=== PATIENT | male | born 1965 | race African-American/Black ===

== ENCOUNTER 2019-12-06 07:13 | Outpatient (CLI) | payer OTHER ==
[2019-12-06 12:24] LABS: #Eosinphils 0.3 thou/uL (0.0-0.7); #Lymphocytes 2.8 thou/uL (1.20-3.40); #Monocytes 0.9 thou/uL (0.11-0.59); #Neutrophils 7.8 thou/uL (1.40-6.50); %Basophils 0.6 % (0.0-1.0); %Eosinophils 2.3 % (0.0-10.0); %Lymphocytes 23.7 % (21.0-51.0); %Monocytes 7.5 % (0.0-10.0); Mean Corpuscular HGB CONC 34.6 g/dL (32.0-36.0); Mean Corpuscular Hemoglobin 32.6 pg (27.0-31.0); Mean Corpuscular Volume 94.2 fL (78.0-98.0); Mean Platelet Volume 8.2 fL (7.4-10.4); Platelet Count 181 thou/uL (130-400); RBC Distribution Width 11.6 % (11.5-14.5); Red Blood Cell (RBC) Count 3.98 mill/uL (4.70-6.10); White Blood Cell (WBC) Count 11.8 thou/uL (4.8-10.8)
[2019-12-06 12:25] LABS: #Basophils 0.1 thou/uL (0.0-0.2)
[2019-12-06 12:44] LABS: Anion Gap 11 mmol/L (10-20); BUN (Urea Nitrogen) 12 mg/dL (8.4-25.7); Calc. Creatinine Clearance 0 mL/min (70-130); Calcium 8.9 mg/dL (7.8-10.44); Carbon Dioxide 27 mmol/L (22-29); Chloride 105 mmol/L (98-107); Estimated GFR-MDRD Greater than 90; Glucose 68 mg/dL (70-105); Potassium 4.4 mmol/L (3.5-5.1); Sodium 139 mmol/L (136-145)
== END 2019-12-06 07:14 | disposition home or self-care (01) ==
LOC: LABBT 07:13
PROVIDERS: ATTEND Specialist
DX: Z01.818 Encounter for other preprocedural examination (principal); D17.1 Benign lipomatous neoplasm of skin and subcutaneous tissue of trunk
CPT/HCPCS: 80048; 85025; 93005; 93010

== ENCOUNTER 2019-12-11 11:55 | Day surgery (SDC) | payer OTHER ==
--- NOTE | 2019-12-05 10:52 | HP ---
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 He has had this for a number of years, but it has become bothersome. He desires removal. We will plan this as an outpatient under anesthesia. Drain may have to be used. SOCIAL HISTORY: Tobacco, 1/2 pack per day. Alcohol, two beers a day. MEDICATIONS: 1. Gabapentin 300 mg three times a day. 2. Latuda 40 mg at bedtime. 3. Sertraline 50 mg a.m. 4. Lisinopril/hydrochlorothiazide 20/12.5 daily. 5. Aspirin 325 a day. PAST SURGICAL HISTORY: Noncontributory. PAST MEDICAL HISTORY: He has had a prior stroke. He has had an ENT procedure for his vocal cords. 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 Hypertension. He does have a prior history of heart murmur and prior incarceration and followed by [facility] for his depression and psychiatric illness. PHYSICAL EXAMINATION: VITAL SIGNS: 190 pounds, 5 foot 8 inches, 137/108, 68, 99. HEAD, EARS, EYES, NOSE, AND THROAT: Unremarkable. LUNGS: Clear to auscultation. CARDIAC: Regular rate and rhythm. ABDOMEN: Soft and nontender. Large 10 x 10 cm lipoma left upper back. PLAN: Excision of lipoma left upper back under anesthesia outpatient. Risks and benefits were explained. Questions answered. Job ID: [id number]
[2019-12-06 11:30] VITALS: BMI 30.4
[~2019-12-11 11:55] MED LIST: Dexamethasone 20 MG/5 ML VIAL ONE; Glycopyrrolate 0.2 MG/ML 5 ML SYRINGE ONE; Lidocaine 1% PF 5 ML VIAL ONE; Ondansetron PF 4 MG/2 ML Vial ONE; PROPOFOL 200 MG/20 ML VIAL ONE; Rocuronium Bromide 10 MG/ML (10ML VIAL) ONE; Succinylcholine Chloride 20 MG/ML 10 ml SYRINGE FS ONE
--- NOTE | 2019-12-11 13:31 | RAD ---
RADIOGRAPH CHEST 1 VIEW: DATE: 12/11/2019 HISTORY: 53-year-old male with cough. FINDINGS: There are no air space densities, pulmonary edema, pneumothorax, or cardiomegaly. The lateral costop hrenic angles are sharp. IMPRESSION: No acute cardiopulmonary findings. jn [] POS: TPC
--- NOTE | 2019-12-11 14:43 | EKG ---
Test Reason : PREOP Blood Pressure : / mmHG Vent. Rate : 069 BPM Atrial Rate : 069 BPM P-R Int : 158 ms QRS Dur : 088 ms QT Int : 400 ms P-R-T Axes : 060 043 011 degrees QTc Int : 428 ms Normal sinus rhythm Normal ECG When compared with ECG of 06-DEC-2019 11:52, No significant change was found Confirmed by DR. Brook DIALLO ([id number]) on 12/11/2019 2:42:49 PM Referred By: KELLEY Confirmed By:DR. Brook DIALLO
[2019-12-11] MEDS ORDERED: Bacitracin Zinc Ointment 30 gm TUBE ONE (14:45)
[2019-12-11] MEDS ORDERED: Bupivacaine PF 0.5% 30 ML VIAL ONE (14:45)
[2019-12-11] MEDS ORDERED: Lidocaine 1% w/Epinephrine 1:100K 20 ML VIAL ONE (14:45)
[2019-12-11] MEDS ORDERED: Fentanyl 100 MCG/2 ML VIAL ONE (14:56)
--- NOTE | 2019-12-11 16:16 | OP ---
DATE OF PROCEDURE: 12/11/2019 PREOPERATIVE DIAGNOSIS: Large lipoma, left upper back, 8 cm in diameter. POSTOPERATIVE DIAGNOSIS: Large lipoma, left upper back, 8 cm in diameter. PROCEDURES PERFORMED: Excision of lipoma, left upper back, right lateral decubitus position, general anesthesia, 8 cm incision, layered closure, no drain. ANESTHESIA: General, local 0.5% Marcaine 30 mL mixed with 1% Xylocaine with epinephrine 20 mL. DESCRIPTION OF PROCEDURE: The patient was taken to the operating room, where under general anesthesia, properly positioned, padded in the right lateral decubitus position. Left upper back prepared with ChloraPrep and draped in routine fashion. Incision was made through skin, subcutaneous tissue, and a deep lipoma was excised from the deep subcutaneous tissue and overlying fascia excised and submitted to Pathology. Hemostasis was gained with the cautery. Local anesthetic was infiltrated in the wound for postoperative pain control. Subcutaneous tissue was approximated with 3-0 Monocryl, skin with subdermal 4-0 Monocryl, and [place] glue was applied. Job ID: [id number]
[2019-12-11] MEDS ORDERED: Meperidine HCl/PF 25 MG/ML VIAL ONE (16:36)
== END 2019-12-11 18:00 | disposition home or self-care (01) ==
LOC: SDC 11:55
PROVIDERS: ATTEND Specialist
PROC: 0JB70ZZ Excision of Back Subcutaneous Tissue and Fascia, Open Approach (ICD-10-PCS; principal; 2019-12-11)
DX: D17.1 Benign lipomatous neoplasm of skin and subcutaneous tissue of trunk (principal); I10 Essential (primary) hypertension; I63.9 Cerebral infarction, unspecified; R47.1 Dysarthria and anarthria; F17.210 Nicotine dependence, cigarettes, uncomplicated; F32.9 Major depressive disorder, single episode, unspecified; Z79.82 Long term (current) use of aspirin; Z79.899 Other long term (current) drug therapy
CPT/HCPCS: 71045; 88304; 93005; 93010; J0690; J1100; J2001; J2175; J2405; J2704; J3010; J7620; S0020

== ENCOUNTER 2020-04-20 12:11 | Outpatient (CLI) | payer OTHER ==
[~2020-04-20 12:11] MED LIST changes: -Dexamethasone 20 MG/5 ML VIAL ONE; -Glycopyrrolate 0.2 MG/ML 5 ML SYRINGE ONE; -Lidocaine 1% PF 5 ML VIAL ONE; +Magnevist 469MG/ML 20 ML VIAL ONE; -Ondansetron PF 4 MG/2 ML Vial ONE; -PROPOFOL 200 MG/20 ML VIAL ONE; -Rocuronium Bromide 10 MG/ML (10ML VIAL) ONE; -Succinylcholine Chloride 20 MG/ML 10 ml SYRINGE FS ONE
--- NOTE | 2020-04-20 14:25 | MRI ---
Exam: Brain MRI with and without contrast HISTORY: Convulsive patient. Multiple seizures. COMPARISON: 06/30/2017 FINDINGS: Gradient echo sequence: No hemorrhage Calvarium: Appropriate T1 marrow signal intensity Midline brain parenchyma: Unremarkable Cerebrum:No parenchymal mass, mass effect or midline shift. Brain volume, slightly less than expected for patient's age. Cortical lawton-white matter differentiation. T2 and FLAIR white matter hyperintensities, similar to the previous examination are felt to be due to chronic small vessel isch emic change. Ventricles: No evidence of hydrocephalus. Sinuses and mastoid air cells: Adequate aeration Diffusion: Central arterial flow is maintained. Absent restricted diffusion. Postcontrast images: No pathologic enhancement of the brain parenchyma. No definite evidence of mesial temporal sclerosis. IMPRESSION: 1. Limited evaluation due to motion degradation despite repeat imaging. 2. Brain volume, less than expected for patient's age 3. No pathologic enhancement the brain parenchyma. No MR evidence of mesial temporal sclerosis 4. Chronic small vessel ischemic changes of the white matter.
--- NOTE | 2020-04-20 16:11 | EEG ---
DATE OF SERVICE: 04/20/2020 DESCRIPTION OF THE RECORD: Waking background is a 9-10 hertz occipitally dominant alpha frequency. The patient remained awake throughout the study. Photic stimulation was unremarkable. No epileptiform features were seen. IMPRESSION: This is a normal awake EEG. Job ID: [id number]
== END 2020-04-20 12:12 | disposition home or self-care (01) ==
LOC: BICMRI 12:11 → EEG 12:12
PROVIDERS: ATTEND Nurse Practitioner Acute Care
DX: R56.9 Unspecified convulsions (principal); F17.210 Nicotine dependence, cigarettes, uncomplicated
CPT/HCPCS: 70553; 82565; 95816

== ENCOUNTER 2020-05-20 08:41 | Outpatient (CLI) | payer OTHER ==
--- NOTE | 2020-05-20 09:29 | ULT ---
EXAM: US Hepatic Doppler PROVIDED CLINICAL HISTORY: Abnormal AST/ALT COMPARISON: None FINDINGS: The liver, gallbladder, spleen, and limited visualized portions of the pancreas demonstrate a normal sonographic appearance. Majority of the abdominal aorta is obscured by bowel gas. Where visualized, the abdominal aorta does appear normal in caliber. The common duct is normal in caliber measuring 0.5 cm in diameter. Limited visualized portions of the IVC have a normal sonographic appearance. Doppler evaluation with spectral analysis demonstrates normal directional flow within the portal, hep atic, and splenic veins with arterial waveforms seen within the hepatic and splenic arteries. IMPRESSION: 1. Normal appearance of the liver and spleen. 2. No gallbladder calculi are seen, and the common duct is normal in caliber. 3. Evidence of hepatopedal flow.
== END 2020-05-20 08:42 | disposition home or self-care (01) ==
LOC: BICULT 08:41
PROVIDERS: ATTEND Family Medicine
DX: R74.8 Abnormal levels of other serum enzymes (principal)
CPT/HCPCS: 76705

== ENCOUNTER 2022-02-14 05:29 | Day surgery (SDC) | payer OTHER ==
[2022-02-10 12:41] VITALS: BMI 25.8
[2022-02-14] MEDS ORDERED: SUGAMMADEX SODIUM 200 MG/2 ML VIAL ONE (06:36)
[2022-02-14] MEDS ORDERED: fentaNYL Citrate/PF 100 MCG/2 ML SYRINGE ONE (06:36)
[2022-02-14] MEDS ORDERED: Lidocaine 1% w/Epinephrine 1:100K 20 ML VIAL ONE (06:40)
[2022-02-14] MEDS ORDERED: Methylene Blue 50 MG/10 ML AMPUL ONE (06:40)
[2022-02-14] MEDS ORDERED: Bacitracin Zinc Ointment 30 gm TUBE ONE (06:40)
[2022-02-14] MEDS ORDERED: Bupivacaine PF 0.5% 30 ML VIAL ONE (06:40)
[2022-02-14 07:13] LABS: #Basophils 0.1 thou/uL (0.0-0.2); #Eosinphils 0.2 thou/uL (0.0-0.7); #Lymphocytes 2.3 thou/uL (1.20-3.40); #Monocytes 0.5 thou/uL (0.11-0.59); #Neutrophils 4.2 thou/uL (1.40-6.50); %Basophils 0.7 % (0.0-1.0); %Eosinophils 2.9 % (0.0-10.0); %Lymphocytes 31.5 % (21.0-51.0); %Monocytes 7.4 % (0.0-10.0); %Neutrophils 57.6 % (42.0-75.0); Hemoglobin 12.5 g/dL (14.0-18.0); Mean Corpuscular HGB CONC 33.1 g/dL (32.0-36.0); Mean Corpuscular Hemoglobin 30.8 pg (27.0-31.0); Mean Corpuscular Volume 93.2 fL (78.0-98.0); Mean Platelet Volume 7.8 fL (7.4-10.4); Platelet Count 194 thou/uL (130-400); Red Blood Cell (RBC) Count 4.06 mill/uL (4.70-6.10); White Blood Cell (WBC) Count 7.4 thou/uL (4.8-10.8)
[2022-02-14] MEDS ORDERED: cefOXitin 2 GM VIAL ONE (07:20)
[2022-02-14] MEDS ORDERED: Sodium Chloride 0.9% 100 ML ONE (07:20)
[2022-02-14 07:38] LABS: ALT (SGPT) 15 U/L (8-55); AST (SGOT) 21 U/L (5-34); Albumin 4.3 g/dL (3.5-5.0); Alkaline Phosphatase 124 U/L (40-110); Anion Gap 13 mmol/L (10-20); BUN (Urea Nitrogen) 9 mg/dL (8.4-25.7); Bilirubin, Total 0.9 mg/dL (0.2-1.2); Calc. Creatinine Clearance 95 mL/min (70-130); Calcium 9.4 mg/dL (7.8-10.44); Carbon Dioxide 28 mmol/L (22-29); Chloride 107 mmol/L (98-107); Globulin 3.9 g/dL (2.4-3.5); Glucose 85 mg/dL (70-105); Potassium 4.1 mmol/L (3.5-5.1); Protein, Total 8.2 g/dL (6.0-8.3); Sodium 144 mmol/L (136-145)
[2022-02-14] MEDS ORDERED: Lidocaine 1% PF 5 ML VIAL ONE (07:38)
[2022-02-14] MEDS ORDERED: Ondansetron PF 4 MG/2 ML Vial ONE (07:38)
[2022-02-14] MEDS ORDERED: Dexamethasone 20 MG/5 ML VIAL ONE (07:38)
[2022-02-14] MEDS ORDERED: PROPOFOL 200 MG/20 ML VIAL ONE (07:38)
== END 2022-02-14 09:35 | disposition home or self-care (01) ==
LOC: SDC 05:29
PROVIDERS: ATTEND Surgery
PROC: 0D8R3ZZ Division of Anal Sphincter, Percutaneous Approach (ICD-10-PCS; principal; 2022-02-14)
PROC: 06BY3ZC Excision of Hemorrhoidal Plexus, Percutaneous Approach (ICD-10-PCS; principal; 2022-02-14)
DX: K64.2 Third degree hemorrhoids (principal); K60.1 Chronic anal fissure; I10 Essential (primary) hypertension; Z86.73 Personal history of transient ischemic attack (TIA), and cerebral infarction without residual deficits; Z79.82 Long term (current) use of aspirin; Z79.899 Other long term (current) drug therapy
CPT/HCPCS: 36415; 71275; 72193; 80053; 82728; 83540; 83550; 83735; 84484; 85025; 85379; 85610; 86850; 86900; 86901; 88304; 93005; C9113; J0694; J1100; J2250; J2270; J2405; J2704; J3475; J3490; J7050; Q9968; S0020; S0028; U0003; U0005

== ENCOUNTER 2022-02-15 04:41 | Inpatient (IN) | payer OTHER ==
[2022-02-15 06:26] LABS: #Lymphocytes 1.2 thou/uL (1.20-3.40); #Monocytes 1.4 thou/uL (0.11-0.59); #Neutrophils 13.4 thou/uL (1.40-6.50); %Basophils 0.1 % (0.0-1.0); %Eosinophils 0.2 % (0.0-10.0); %Lymphocytes 7.5 % (21.0-51.0); %Monocytes 8.8 % (0.0-10.0); %Neutrophils 83.5 % (42.0-75.0); Hemoglobin 9.7 g/dL (14.0-18.0); Mean Corpuscular HGB CONC 31.7 g/dL (32.0-36.0); Mean Corpuscular Hemoglobin 29.8 pg (27.0-31.0); Mean Corpuscular Volume 93.9 fL (78.0-98.0); Mean Platelet Volume 8.1 fL (7.4-10.4); Platelet Count 199 thou/uL (130-400); RBC Distribution Width 13.1 % (11.5-14.5); Red Blood Cell (RBC) Count 3.24 mill/uL (4.70-6.10); White Blood Cell (WBC) Count 16.1 thou/uL (4.8-10.8)
[2022-02-15 06:39] LABS: INR-International Normal Ratio 1.2; Prothrombin Time 14.9 sec (12.0-14.7)
[2022-02-15 06:48] LABS: Albumin 3.6 g/dL (3.5-5.0); Anion Gap 15 mmol/L (10-20); BUN (Urea Nitrogen) 12 mg/dL (8.4-25.7); Calc. Creatinine Clearance 0 mL/min (70-130); Calcium 8.4 mg/dL (7.8-10.44); Carbon Dioxide 21 mmol/L (22-29); Chloride 106 mmol/L (98-107); Globulin 2.8 g/dL (2.4-3.5); Glucose 134 mg/dL (70-105); Potassium 4.2 mmol/L (3.5-5.1); Protein, Total 6.4 g/dL (6.0-8.3); Sodium 138 mmol/L (136-145)
[2022-02-15 06:49] LABS: ALT (SGPT) 10 U/L (8-55); AST (SGOT) 14 U/L (5-34); Alkaline Phosphatase 96 U/L (40-110)
[2022-02-15] MEDS ORDERED: Iopamidol 370 76% 100 ML VIAL ONE (08:48)
[2022-02-15] MEDS ORDERED: Ondansetron PF 4 MG/2 ML Vial IVP PRN (08:54)
[2022-02-15] MEDS ORDERED: Acetaminophen 650 MG Suppository PR PRN (08:54)
[2022-02-15] MEDS ORDERED: Ondansetron ODT 4 MG TAB PO PRN (08:54)
[2022-02-15 09:29] LABS: Hemoglobin 10.1 g/dL (14.0-18.0)
[2022-02-15 11:01] LABS: Iron 41 ug/dL (65-175); Iron Binding Capacity, Total 254 mcg/dL (261-462); Magnesium 1.9 mg/dL (1.6-2.6)
[2022-02-15] MEDS ORDERED: Magnesium 2 GM/50 ML(in water) 2 GM in Premix Bag 1 BAG IVPB SCH (11:15)
[2022-02-15 12:30] VITALS: BMI 26.2
[2022-02-15] MEDS: Sodium Chloride 0.9% 1,000 ML IV SCH ×3 (12:40→22:08)
[2022-02-15] MEDS: Pantoprazole 40 MG VIAL IVP SCH ×2 (12:40→22:02)
[2022-02-15 13:04] LABS: Hemoglobin 9.8 g/dL (14.0-18.0)
[2022-02-15 19:38] LABS: Hemoglobin 8.3 g/dL (14.0-18.0)
[2022-02-15] MEDS: Metoprolol Tartrate 25 MG TAB PO SCH (21:04)
[2022-02-15 23:09] LABS: SARS-CoV-2 PCR by NAA Not Detected (NotDetected)
[2022-02-16 00:06] LABS: Hemoglobin 7.7 g/dL (14.0-18.0)
[2022-02-16 04:36] LABS: #Basophils 0.1 thou/uL (0.0-0.2); #Eosinphils 0.1 thou/uL (0.0-0.7); #Lymphocytes 2.4 thou/uL (1.20-3.40); #Monocytes 0.8 thou/uL (0.11-0.59); #Neutrophils 6.5 thou/uL (1.40-6.50); %Basophils 0.6 % (0.0-1.0); %Eosinophils 0.7 % (0.0-10.0); %Lymphocytes 24.8 % (21.0-51.0); %Monocytes 8.1 % (0.0-10.0); %Neutrophils 65.9 % (42.0-75.0); Hemoglobin 7.8 g/dL (14.0-18.0); Mean Corpuscular HGB CONC 32.7 g/dL (32.0-36.0); Mean Corpuscular Hemoglobin 30.5 pg (27.0-31.0); Mean Corpuscular Volume 93.5 fL (78.0-98.0); Platelet Count 143 thou/uL (130-400); RBC Distribution Width 12.9 % (11.5-14.5); Red Blood Cell (RBC) Count 2.54 mill/uL (4.70-6.10); White Blood Cell (WBC) Count 9.8 thou/uL (4.8-10.8)
[2022-02-16 04:50] LABS: Anion Gap 12 mmol/L (10-20); BUN (Urea Nitrogen) 9 mg/dL (8.4-25.7); Calc. Creatinine Clearance 115 mL/min (70-130); Carbon Dioxide 23 mmol/L (22-29); Chloride 110 mmol/L (98-107); Glucose 87 mg/dL (70-105); Sodium 141 mmol/L (136-145)
[2022-02-16] MEDS: Sodium Chloride 0.9% 1,000 ML IV SCH ×3 (05:32→21:22)
[2022-02-16] MEDS ORDERED: Iopamidol-370 76% 500 ML 1 ML ONE (09:06)
[2022-02-16] MEDS: Docusate 100 MG CAP PO SCH ×2 (09:58→21:24)
[2022-02-16] MEDS: Pantoprazole 40 MG VIAL IVP SCH ×2 (09:58→21:23)
[2022-02-16] MEDS: Gabapentin 300 MG CAP PO SCH ×2 (09:58→21:24)
[2022-02-16] MEDS: Metoprolol Tartrate 25 MG TAB PO SCH ×2 (09:58→21:24)
[2022-02-16] MEDS ORDERED: cefOXitin 2 GM in Sodium Chloride 0.9% 100 ML IVPB SCH (11:30)
[2022-02-16] MEDS ORDERED: Lidocaine 2% Jelly 5 ML TUBE ONE (13:36)
[2022-02-16] MEDS ORDERED: Lidocaine 1% w/Epinephrine 1:100K 20 ML VIAL ONE (13:36)
[2022-02-16] MEDS ORDERED: Bupivacaine 0.25% 10 ML VIAL ONE (13:36)
[2022-02-16] MEDS ORDERED: Bacitracin Zinc Ointment 30 gm TUBE ONE (13:36)
[2022-02-16] MEDS ORDERED: Famotidine/PF 20 mg/2ml Vial ONE (13:40)
[2022-02-16] MEDS ORDERED: Midazolam HCl 2 mg/2 ml Vial ONE (13:40)
[2022-02-16] MEDS ORDERED: fentaNYL Citrate/PF 100 MCG/2 ML SYRINGE ONE (13:40)
[2022-02-16] MEDS ORDERED: Sodium Chloride 0.9% 100 ML ONE (14:02)
[2022-02-16] MEDS ORDERED: cefOXitin 2 GM VIAL ONE (14:02)
[2022-02-16] MEDS ORDERED: Ondansetron PF 4 MG/2 ML Vial ONE (14:14)
[2022-02-16] MEDS ORDERED: Lidocaine 1% PF 5 ML VIAL ONE (14:14)
[2022-02-16] MEDS ORDERED: PROPOFOL 200 MG/20 ML VIAL ONE (14:14)
[2022-02-16] MEDS ORDERED: Morphine 2 MG/ML VIAL SLOW IVP PRN (14:52)
[2022-02-16] MEDS: Acetaminophen 325 MG TAB PO PRN (16:50)
[2022-02-16] MEDS: Morphine 4 MG/ML VIAL SLOW IVP PRN ×2 (17:45→21:25)
[2022-02-16 19:11] LABS: Hemoglobin 8.3 g/dL (14.0-18.0)
[2022-02-16] MEDS: Atorvastatin Calcium 40 MG TAB PO SCH (21:24)
[2022-02-16] MEDS: Benztropine 1 MG TAB PO SCH (21:24)
[2022-02-17] MEDS: Morphine 4 MG/ML VIAL SLOW IVP PRN (02:35)
[2022-02-17 04:24] LABS: Hemoglobin 7.8 g/dL (14.0-18.0); Mean Corpuscular HGB CONC 33.1 g/dL (32.0-36.0); Mean Corpuscular Hemoglobin 31.1 pg (27.0-31.0); Mean Platelet Volume 8.4 fL (7.4-10.4); Platelet Count 137 thou/uL (130-400); RBC Distribution Width 12.7 % (11.5-14.5); Red Blood Cell (RBC) Count 2.51 mill/uL (4.70-6.10); White Blood Cell (WBC) Count 7.9 thou/uL (4.8-10.8)
[2022-02-17 04:43] LABS: Anion Gap 11 mmol/L (10-20); BUN (Urea Nitrogen) 7 mg/dL (8.4-25.7); Calc. Creatinine Clearance 117 mL/min (70-130); Carbon Dioxide 24 mmol/L (22-29); Chloride 110 mmol/L (98-107); Glucose 78 mg/dL (70-105); Potassium 3.7 mmol/L (3.5-5.1); Sodium 141 mmol/L (136-145)
[2022-02-17] MEDS: Docusate 100 MG CAP PO SCH ×2 (09:56→20:42)
[2022-02-17] MEDS: Gabapentin 300 MG CAP PO SCH ×2 (09:56→20:42)
[2022-02-17] MEDS: Lisinopril 20 MG TAB PO SCH (09:57)
[2022-02-17] MEDS: Pantoprazole 40 MG VIAL IVP SCH ×2 (09:58→20:44)
[2022-02-17] MEDS: Metoprolol Tartrate 25 MG TAB PO SCH ×2 (09:58→20:42)
[2022-02-17] MEDS: Sodium Chloride 0.9% 1,000 ML IV SCH ×2 (13:03→23:46)
[2022-02-17] MEDS: Benztropine 1 MG TAB PO SCH (20:42)
[2022-02-17] MEDS: Atorvastatin Calcium 40 MG TAB PO SCH (20:43)
[2022-02-17] MEDS: Acetaminophen 325 MG TAB PO PRN (20:43)
[2022-02-18 05:31] LABS: Hemoglobin 7.6 g/dL (14.0-18.0); Mean Corpuscular HGB CONC 33.5 g/dL (32.0-36.0); Mean Corpuscular Hemoglobin 31.1 pg (27.0-31.0); Mean Corpuscular Volume 92.6 fL (78.0-98.0); Mean Platelet Volume 8.2 fL (7.4-10.4); Platelet Count 140 thou/uL (130-400); RBC Distribution Width 12.3 % (11.5-14.5); Red Blood Cell (RBC) Count 2.44 mill/uL (4.70-6.10)
[2022-02-18 08:26] VITALS: BP 130/86; TEMP 97.6
[2022-02-18] MEDS: Metoprolol Tartrate 25 MG TAB PO SCH (08:39)
[2022-02-18] MEDS: Gabapentin 300 MG CAP PO SCH (08:39)
[2022-02-18] MEDS: Lisinopril 20 MG TAB PO SCH (08:39)
[2022-02-18] MEDS: Docusate 100 MG CAP PO SCH (08:40)
[2022-02-18] MEDS: Pantoprazole 40 MG VIAL IVP SCH (08:40)
== END 2022-02-18 16:22 | DRG 987 ==
LOC: ERS 04:41 → 2NO 08:54 → T4-A 02-17 13:03
PROVIDERS: ADMIT Internal Medicine; ATTEND Internal Medicine
PROC: 06L Lower Veins, Occlusion (ICD-10-PCS; principal; 2022-02-16)
DX: K91.840 Postprocedural hemorrhage of a digestive system organ or structure following a digestive system procedure (principal); J98.59 Other diseases of mediastinum, not elsewhere classified; J98.11 Atelectasis; D62 Acute posthemorrhagic anemia; I47.1 Supraventricular tachycardia; F14.20 Cocaine dependence, uncomplicated; K64.8 Other hemorrhoids; I69.391 Dysphagia following cerebral infarction; K62.89 Other specified diseases of anus and rectum; G40.909 Epilepsy, unspecified, not intractable, without status epilepticus; I69.320 Aphasia following cerebral infarction; K52.9 Noninfective gastroenteritis and colitis, unspecified; K60.2 Anal fissure, unspecified; I49.8 Other specified cardiac arrhythmias; K21.9 Gastro-esophageal reflux disease without esophagitis; N31.2 Flaccid neuropathic bladder, not elsewhere classified; R91.1 Solitary pulmonary nodule; F10.21 Alcohol dependence, in remission; F41.9 Anxiety disorder, unspecified; F32.A Depression, unspecified; G20 Parkinson's disease; G60.9 Hereditary and idiopathic neuropathy, unspecified; F25.9 Schizoaffective disorder, unspecified; I10 Essential (primary) hypertension; G47.00 Insomnia, unspecified; Y83.8 Other surgical procedures as the cause of abnormal reaction of the patient, or of later complication, without mention of misadventure at the time of the procedure; Z20.822 Contact with and (suspected) exposure to COVID-19; Z79.82 Long term (current) use of aspirin; Z79.891 Long term (current) use of opiate analgesic; Z79.899 Other long term (current) drug therapy; Z86.018 Personal history of other benign neoplasm; Z87.891 Personal history of nicotine dependence; Z83.3 Family history of diabetes mellitus; Z67.11 Type A blood, Rh negative
CPT/HCPCS: 36415; 72193; 80053; 82728; 83540; 83550; 83735; 84484; 85025; 85379; 85610; 86850; 86900; 86901; 93005; C9113; J3475; J7050; U0003; U0005

== ENCOUNTER 2022-03-18 09:45 | Day surgery (SDC) | payer OTHER ==
[2022-03-17 14:24] VITALS: BMI 26.3
[2022-03-18] MEDS ORDERED: fentaNYL Citrate/PF 100 MCG/2 ML SYRINGE ONE (10:37)
[2022-03-18] MEDS ORDERED: SUGAMMADEX SODIUM 200 MG/2 ML VIAL ONE (12:15)
[2022-03-18] MEDS ORDERED: Lidocaine 1% w/Epinephrine 1:100K 20 ML VIAL ONE (12:37)
[2022-03-18] MEDS ORDERED: Lidocaine 2% Jelly 5 ML TUBE ONE (12:37)
[2022-03-18] MEDS ORDERED: Dexamethasone 20 MG/5 ML VIAL ONE (12:41)
[2022-03-18] MEDS ORDERED: Glycopyrrolate 0.2 MG/ML 5 ML SYRINGE ONE (12:41)
[2022-03-18] MEDS ORDERED: PROPOFOL 200 MG/20 ML VIAL ONE (12:41)
[2022-03-18] MEDS ORDERED: Ondansetron PF 4 MG/2 ML Vial ONE (12:41)
[2022-03-18] MEDS ORDERED: Lidocaine 1% PF 5 ML VIAL ONE (12:41)
[2022-03-18] MEDS ORDERED: Rocuronium Bromide 10 MG/ML (10ML VIAL) ONE (12:41)
[2022-03-18] MEDS ORDERED: EPINEPHrine 1 MG/ML AMP ONE (13:05)
== END 2022-03-18 15:52 | disposition home or self-care (01) ==
LOC: SDC 09:45
PROVIDERS: ATTEND Internal Medicine Critical Care Medicine
PROC: 0BB88ZX Excision of Left Upper Lobe Bronchus, Via Natural or Artificial Opening Endoscopic, Diagnostic (ICD-10-PCS; principal; 2022-03-18)
PROC: 0BDG8ZX Extraction of Left Upper Lung Lobe, Via Natural or Artificial Opening Endoscopic, Diagnostic (ICD-10-PCS; principal; 2022-03-18)
DX: C34.12 Malignant neoplasm of upper lobe, left bronchus or lung (principal); Z79.82 Long term (current) use of aspirin; Z79.899 Other long term (current) drug therapy
CPT/HCPCS: 88112; 88305; 88341; 88342; J0171; J1100; J2405; J2704

== ENCOUNTER 2022-03-24 11:21 | Emergency (ER) | payer OTHER ==
[2022-03-24 12:16] LABS: #Eosinphils 0.1 thou/uL (0.0-0.7); #Lymphocytes 1.5 thou/uL (1.20-3.40); #Monocytes 0.6 thou/uL (0.11-0.59); #Neutrophils 4.3 thou/uL (1.40-6.50); %Basophils 0.4 % (0.0-1.0); %Eosinophils 1.3 % (0.0-10.0); %Lymphocytes 22.6 % (21.0-51.0); %Monocytes 9.4 % (0.0-10.0); %Neutrophils 66.2 % (42.0-75.0); Hemoglobin 8.1 g/dL (14.0-18.0); Mean Corpuscular HGB CONC 31.6 g/dL (32.0-36.0); Mean Corpuscular Hemoglobin 28.1 pg (27.0-31.0); Mean Platelet Volume 7.9 fL (7.4-10.4); Platelet Count 194 thou/uL (130-400); RBC Distribution Width 13.9 % (11.5-14.5); Red Blood Cell (RBC) Count 2.89 mill/uL (4.70-6.10); White Blood Cell (WBC) Count 6.5 thou/uL (4.8-10.8)
[2022-03-24 12:38] LABS: ALT (SGPT) 7 U/L (8-55); AST (SGOT) 14 U/L (5-34); Albumin 3.6 g/dL (3.5-5.0); Alkaline Phosphatase 90 U/L (40-110); Anion Gap 12 mmol/L (10-20); BUN (Urea Nitrogen) 9 mg/dL (8.4-25.7); Bilirubin, Total 0.5 mg/dL (0.2-1.2); Calc. Creatinine Clearance 0 mL/min (70-130); Calcium 8.5 mg/dL (7.8-10.44); Carbon Dioxide 26 mmol/L (22-29); Chloride 109 mmol/L (98-107); Globulin 3.3 g/dL (2.4-3.5); Glucose 83 mg/dL (70-105); Potassium 4.5 mmol/L (3.5-5.1); Protein, Total 6.9 g/dL (6.0-8.3); Sodium 142 mmol/L (136-145)
== END 2022-03-24 13:04 | disposition home or self-care (01) ==
LOC: ERS 11:21
DX: R56.9 Unspecified convulsions (principal); I95.1 Orthostatic hypotension; R00.1 Bradycardia, unspecified; I10 Essential (primary) hypertension; G60.9 Hereditary and idiopathic neuropathy, unspecified; G20 Parkinson's disease; G47.00 Insomnia, unspecified; F17.210 Nicotine dependence, cigarettes, uncomplicated; Z86.73 Personal history of transient ischemic attack (TIA), and cerebral infarction without residual deficits; Z79.899 Other long term (current) drug therapy
CPT/HCPCS: 36415; 70450; 71045; 80053; 83735; 84484; 85025; 93005; 94760; 96360; 96361

== ENCOUNTER 2022-04-19 08:00 | Outpatient (CLI) | payer OTHER | END 2022-04-19 08:01 | disposition home or self-care (01) | LOC: PET 08:00 | PROVIDERS: ATTEND Internal Medicine Hematology & Oncology | DX: C34.12 Malignant neoplasm of upper lobe, left bronchus or lung (principal); R91.8 Other nonspecific abnormal finding of lung field | CPT/HCPCS: 78815; A9552 ==

== ENCOUNTER 2022-09-15 08:38 | Day surgery (SDC) | payer OTHER ==
[2022-09-14 12:45] VITALS: BMI 26.9
[2022-09-15] MEDS ORDERED: Dexmedetomidine 200 MCG/2 ML VIAL ONE (10:11)
[2022-09-15] MEDS ORDERED: fentaNYL PF 100 MCG/2 ML SYRINGE ONE (10:11)
[2022-09-15] MEDS ORDERED: PROPOFOL 20 ML ONE (10:11)
[2022-09-15 10:21] LABS: #Basophils 0.1 thou/uL (0.0-0.2); #Eosinphils 0.2 thou/uL (0.0-0.7); #Monocytes 0.6 thou/uL (0.11-0.59); #Neutrophils 3.5 thou/uL (1.40-6.50); %Lymphocytes 30.9 % (21.0-51.0); %Monocytes 9.2 % (0.0-10.0); %Neutrophils 55.8 % (42.0-75.0); Hemoglobin 9.9 g/dL (14.0-18.0); Mean Corpuscular HGB CONC 30.4 g/dL (32.0-36.0); Mean Corpuscular Hemoglobin 24.9 pg (27.0-31.0); Mean Corpuscular Volume 81.8 fl (78.0-98.0); Platelet Count 236 10x3/uL (130-400); RBC Distribution Width 16.9 % (11.5-14.5); Red Blood Cell (RBC) Count 3.96 mill/uL (4.70-6.10); White Blood Cell (WBC) Count 6.3 10x3/uL (4.8-10.8)
[2022-09-15 10:29] LABS: Anion Gap 9 mmol/L (10-20); BUN (Urea Nitrogen) 9 mg/dL (8.4-25.7); Calc. Creatinine Clearance 104 mL/min (70-130); Calcium 9.2 mg/dL (7.8-10.44); Carbon Dioxide 28 mmol/L (22-29); Chloride 106 mmol/L (98-107); Estimated GFR 100; Glucose 76 mg/dL (70-105); Potassium 4.2 mmol/L (3.5-5.1); Sodium 139 mmol/L (136-145)
[2022-09-15] MEDS ORDERED: Lidocaine 2% PF 5 ML VIAL ONE (11:30)
[2022-09-15] MEDS ORDERED: Bupivacaine/Epinephrine 0.25% 30 ML VIAL ONE (11:30)
[2022-09-15] MEDS ORDERED: CEFAZOLIN 2 GM VIAL ONE (11:37)
[2022-09-15] MEDS ORDERED: Sodium Chloride 0.9% 100 ML ONE (11:37)
== END 2022-09-15 14:12 | disposition home or self-care (01) ==
LOC: SDC 08:38
PROVIDERS: ATTEND Surgery
PROC: 02HV33Z Insertion of Infusion Device into Superior Vena Cava, Percutaneous Approach (ICD-10-PCS; principal; 2022-09-15)
PROC: 0JH60WZ Insertion of Totally Implantable Vascular Access Device into Chest Subcutaneous Tissue and Fascia, Open Approach (ICD-10-PCS; principal; 2022-09-15)
DX: C34.90 Malignant neoplasm of unspecified part of unspecified bronchus or lung (principal); I25.10 Atherosclerotic heart disease of native coronary artery without angina pectoris; I10 Essential (primary) hypertension; Z79.82 Long term (current) use of aspirin; Z79.899 Other long term (current) drug therapy
CPT/HCPCS: 71045; 80048; 85025; C1788; J1642; J2001; J2704; J3490

== ENCOUNTER 2022-10-13 06:34 | Outpatient (CLI) | payer OTHER ==
[2022-10-13] MEDS ORDERED: Iopamidol 370 76% 100 ML VIAL ONE (11:33)
== END 2022-10-13 06:35 | disposition home or self-care (01) ==
LOC: CT 06:34
PROVIDERS: ATTEND Internal Medicine Hematology & Oncology
DX: C34.12 Malignant neoplasm of upper lobe, left bronchus or lung (principal); D50.8 Other iron deficiency anemias; J98.11 Atelectasis
CPT/HCPCS: 71260; Q9967

== ENCOUNTER 2023-05-31 18:46 | Emergency (ER) | payer OTHER ==
[2023-05-31 21:14] LABS: Bacteria/HPF None Seen HPF (None Seen); Bilirubin Negative (Negative); Blood, Urine Negative (Negative); CAUTI Indications for Culture Dysuria,urgency,freq; Clarity Clear (Clear); Glucose, Urine (Dipstick) Normal (Negative); Ketone, Urine Negative (Negative); Leukocyte 75 Leu/uL (Negative); Nitrite Negative (Negative); Protein, Urine (Dipstick) 30 mg/dL (Neg-Trace); RBC/HPF 0-3 HPF (0-3); Specific Gravity, Urine 1.012 (1.002-1.036); Urobilinogen Normal mg/dL (Less than 2)
[2023-05-31 21:15] LABS: Urine Culture Reflex No No
[2023-05-31 21:54] LABS: #Eosinphils 0.3 thou/uL (0.0-0.7); #Monocytes 0.7 thou/uL (0.11-0.59); #Neutrophils 8.1 thou/uL (1.40-6.50); %Basophils 0.4 % (0.0-1.0); %Eosinophils 2.4 % (0.0-10.0); %Lymphocytes 13.1 % (21.0-51.0); %Monocytes 6.7 % (0.0-10.0); %Neutrophils 77.1 % (42.0-75.0); Hematocrit 31.6 % (42.0-52.0); Hemoglobin 10.7 g/dL (14.0-18.0); Mean Corpuscular HGB CONC 33.9 g/dL (32.0-36.0); Mean Corpuscular Hemoglobin 28.7 pg (27.0-31.0); Mean Corpuscular Volume 84.7 fl (78.0-98.0); Mean Platelet Volume 10.3 fL (7.4-10.4); Platelet Count 220 10x3/uL (130-400); RBC Distribution Width 13.1 % (11.5-14.5); Red Blood Cell (RBC) Count 3.73 mill/uL (4.70-6.10); White Blood Cell (WBC) Count 10.5 10x3/uL (4.8-10.8)
[2023-05-31 22:19] LABS: Troponin I Less than 0.010 ng/mL (< 0.028)
[2023-05-31 22:23] LABS: ALT (SGPT) 8 U/L (8-55); Albumin 3.6 g/dL (3.5-5.0); Alkaline Phosphatase 110 U/L (40-110); Anion Gap 11 mmol/L (10-20); BUN (Urea Nitrogen) 8 mg/dL (8.4-25.7); Bilirubin, Total 0.4 mg/dL (0.2-1.2); CK (CPK) 184 U/L (30-200); Calc. Creatinine Clearance 0 mL/min (70-130); Calcium 8.8 mg/dL (7.8-10.44); Carbon Dioxide 26 mmol/L (22-29); Chloride 102 mmol/L (98-107); Estimated GFR 100; Globulin 4.2 g/dL (2.4-3.5); Glucose 102 mg/dL (70-105); Potassium 3.4 mmol/L (3.5-5.1); Protein, Total 7.8 g/dL (6.0-8.3); Sodium 136 mmol/L (136-145)
[2023-05-31 22:26] LABS: AST (SGOT) 16 U/L (5-34)
[2023-05-31] MEDS ORDERED: NS 0.9% w/ 20 MEQ KCL 0 ML ONE (22:39)
[2023-05-31] MEDS ORDERED: Potassium Chloride 20 MEQ/100 ML PREMIX BAG ONE (22:41)
== END 2023-06-01 00:51 ==
LOC: ERS 18:46
DX: R56.9 Unspecified convulsions (principal); E87.6 Hypokalemia; I10 Essential (primary) hypertension; Z79.899 Other long term (current) drug therapy; Z79.82 Long term (current) use of aspirin; F17.210 Nicotine dependence, cigarettes, uncomplicated
CPT/HCPCS: 51701; 70450; 71045; 80053; 81001; 82248; 82550; 83605; 83615; 84100; 84439; 84443; 84484; 84550; 85025; 93005; J3480

== ENCOUNTER 2023-06-14 10:37 | Outpatient (CLI) | payer OTHER | END 2023-06-14 10:38 | disposition home or self-care (01) | LOC: BICCT 10:37 | PROVIDERS: ATTEND Internal Medicine Hematology & Oncology | DX: C34.12 Malignant neoplasm of upper lobe, left bronchus or lung (principal) | CPT/HCPCS: 71260 ==

== ENCOUNTER 2023-09-20 09:25 | Outpatient (CLI) | payer OTHER ==
[2023-09-20] MEDS ORDERED: Iopamidol 370 76% 100 ML VIAL ONE (10:12)
== END 2023-09-20 09:26 | disposition home or self-care (01) ==
LOC: BICCT 09:25
PROVIDERS: ATTEND Internal Medicine Hematology & Oncology
DX: C34.12 Malignant neoplasm of upper lobe, left bronchus or lung (principal); J98.4 Other disorders of lung; R59.0 Localized enlarged lymph nodes; R91.8 Other nonspecific abnormal finding of lung field
CPT/HCPCS: 71260; Q9967

== ENCOUNTER 2024-01-10 09:17 | Outpatient (CLI) | payer OTHER | END 2024-01-10 09:18 | disposition home or self-care (01) | LOC: BICCT 09:17 | PROVIDERS: ATTEND Internal Medicine Hematology & Oncology | DX: C34.90 Malignant neoplasm of unspecified part of unspecified bronchus or lung (principal); J98.11 Atelectasis; R59.0 Localized enlarged lymph nodes | CPT/HCPCS: 71260; 82565 ==

== ENCOUNTER 2024-02-15 15:28 | Inpatient (IN) | payer OTHER ==
[2024-02-15 17:28] LABS: #Basophils 0.06 10x3/uL (0.0-0.2); %Basophils 0.4 % (0.0-1.0); %Eosinophils 4.1 % (0.0-10.0); %Lymphocytes 13.3 % (21.0-51.0); %Monocytes 8.9 % (0.0-10.0); %Neutrophils 72.9 % (42.0-75.0); Hemoglobin 11.3 g/dL (14.0-18.0); Mean Corpuscular HGB CONC 33.2 g/dL (32.0-36.0); Mean Corpuscular Hemoglobin 27.8 pg (27.0-31.0); Mean Corpuscular Volume 83.5 fL (78.0-98.0); Mean Platelet Volume 10.9 fL (7.4-10.4); Platelet Count 261 10x3/uL (130-400); RBC Distribution Width 14.5 % (11.5-14.5); Red Blood Cell (RBC) Count 4.07 mill/uL (4.70-6.10)
[2024-02-15 17:49] LABS: Globulin 4.8 g/dL (2.4-3.5)
[2024-02-15 17:52] LABS: Troponin I Less than 0.010 ng/mL (< 0.028)
[2024-02-15 17:54] LABS: ALT (SGPT) 16 U/L (8-55); AST (SGOT) 24 U/L (5-34); Albumin 3.1 g/dL (3.5-5.0); Alkaline Phosphatase 105 U/L (40-110); Anion Gap 18 mmol/L (10-20); BUN (Urea Nitrogen) 12 mg/dL (8.4-25.7); Bilirubin, Total 0.4 mg/dL (0.2-1.2); Calc. Creatinine Clearance 0 mL/min (70-130); Calcium 8.9 mg/dL (7.8-10.44); Carbon Dioxide 21 mmol/L (22-29); Chloride 104 mmol/L (98-107); Estimated GFR 103; Glucose 106 mg/dL (70-105); Lipase 27 U/L (8-78); Potassium 3.9 mmol/L (3.5-5.1); Protein, Total 7.9 g/dL (6.0-8.3); Sodium 139 mmol/L (136-145)
[2024-02-15 19:17] LABS: Bilirubin Negative (Negative); Blood, Urine 2+ (Negative); CAUTI Indications for Culture Dysuria,urgency,freq; Clarity Clear (Clear); Glucose, Urine (Dipstick) Normal (Negative); Ketone, Urine Negative (Negative); Leukocyte 500 Leu/uL (Negative); Nitrite Negative (Negative); Protein, Urine (Dipstick) Negative (Neg-Trace); RBC/HPF 21-50 HPF (0-3); Specific Gravity, Urine 1.026 (1.002-1.036); Squamous Epithelial 0-3 HPF (0-3); WBC/HPF Greater than 50 HPF (0-3)
[2024-02-15 19:20] LABS: Bacteria/HPF 1+ HPF (None Seen)
[2024-02-15 19:21] LABS: Urine Culture Reflex Yes Yes
[2024-02-15] MEDS ORDERED: Cefepime 2 GM VIAL ONE (20:20)
[2024-02-15] MEDS ORDERED: Sodium Chloride 0.9% 100 ML ONE (20:20)
[2024-02-15] MEDS ORDERED: Ondansetron PF 4 MG/2 ML Vial IVP PRN ×2 (20:45→23:39)
[2024-02-15] MEDS ORDERED: Acetaminophen 325 MG TAB PO PRN (20:45)
[2024-02-15] MEDS ORDERED: Ondansetron ODT 4 MG TAB SL PRN (20:45)
[2024-02-15] MEDS ORDERED: Vancomycin (BATCH) 2 GM/500 ML BAG ONE (21:22)
[2024-02-15 23:13] VITALS: BMI 27.0
[2024-02-15] MEDS ORDERED: Ondansetron ODT 4 MG TAB PO PRN (23:39)
[2024-02-15] MEDS ORDERED: Acetaminophen 650 MG Suppository PR PRN (23:39)
[2024-02-16 04:32] LABS: #Basophils 0.05 10x3/uL (0.0-0.2); %Basophils 0.4 % (0.0-1.0); %Eosinophils 3.6 % (0.0-10.0); %Monocytes 8.4 % (0.0-10.0); %Neutrophils 73.3 % (42.0-75.0); Hematocrit 29.4 % (42.0-52.0); Hemoglobin 9.8 g/dL (14.0-18.0); Mean Corpuscular HGB CONC 33.3 g/dL (32.0-36.0); Mean Corpuscular Hemoglobin 28.5 pg (27.0-31.0); Mean Corpuscular Volume 85.5 fL (78.0-98.0); Mean Platelet Volume 10.2 fL (7.4-10.4); Platelet Count 213 10x3/uL (130-400); RBC Distribution Width 14.3 % (11.5-14.5); Red Blood Cell (RBC) Count 3.44 mill/uL (4.70-6.10)
[2024-02-16 05:01] LABS: Chloride 106 mmol/L (98-107); Potassium 3.6 mmol/L (3.5-5.1); Sodium 138 mmol/L (136-145)
[2024-02-16 05:13] LABS: Anion Gap 13 mmol/L (10-20); BUN (Urea Nitrogen) 9 mg/dL (8.4-25.7); Calc. Creatinine Clearance 126 mL/min (70-130); Calcium 8.7 mg/dL (7.8-10.44); Carbon Dioxide 23 mmol/L (22-29); Estimated GFR 106; Glucose 94 mg/dL (70-105)
[2024-02-16] MEDS: Cefepime 1 GM in Sodium Chloride 0.9% 100 ML IVPB SCH (08:26)
[2024-02-16] MEDS: Famotidine/PF 20 mg/2ml Vial SLOW IVP SCH (08:26)
[2024-02-16] MEDS: Famotidine 20 MG TAB PO SCH (08:26)
[2024-02-16] MEDS: Aspirin 81 mg Enteric Coated Tablet PO SCH (09:53)
[2024-02-16] MEDS: Pantoprazole DR 40 MG TAB PO SCH (09:53)
[2024-02-16] MEDS: NS 0.9% w/ 20 MEQ KCL 1,000 ML/1,000 ML BAG IV SCH (19:34)
[2024-02-16] MEDS: Cefepime 2 GM in Sodium Chloride 0.9% 100 ML IVPB SCH (20:20)
[2024-02-17 04:40] LABS: #Basophils 0.06 10x3/uL (0.0-0.2); %Basophils 0.6 % (0.0-1.0); %Eosinophils 4.8 % (0.0-10.0); %Lymphocytes 18.1 % (21.0-51.0); %Neutrophils 67.1 % (42.0-75.0); Hematocrit 29.5 % (42.0-52.0); Hemoglobin 9.7 g/dL (14.0-18.0); Mean Corpuscular HGB CONC 32.9 g/dL (32.0-36.0); Mean Corpuscular Hemoglobin 27.5 pg (27.0-31.0); Mean Corpuscular Volume 83.6 fL (78.0-98.0); Mean Platelet Volume 10.3 fL (7.4-10.4); Platelet Count 226 10x3/uL (130-400); RBC Distribution Width 14.2 % (11.5-14.5); Red Blood Cell (RBC) Count 3.53 mill/uL (4.70-6.10)
[2024-02-17 05:10] LABS: Anion Gap 13 mmol/L (10-20); BUN (Urea Nitrogen) 7 mg/dL (8.4-25.7); Calc. Creatinine Clearance 126 mL/min (70-130); Calcium 8.9 mg/dL (7.8-10.44); Carbon Dioxide 23 mmol/L (22-29); Chloride 108 mmol/L (98-107); Estimated GFR 106; Glucose 92 mg/dL (70-105); Magnesium 1.8 mg/dL (1.6-2.6); Potassium 3.8 mmol/L (3.5-5.1); Sodium 140 mmol/L (136-145)
[2024-02-17] MEDS: Magnesium 2 GM/50 ML(in water) 2 GM in Premix 1 BAG IVPB SCH (09:46)
[2024-02-17] MEDS: Gabapentin 300 MG CAP PO SCH (20:38)
[2024-02-17] MEDS: Atorvastatin Calcium 40 MG TAB PO SCH (20:39)
[2024-02-17] MEDS: Metoprolol Tartrate 25 MG TAB PO SCH (20:39)
[2024-02-17] MEDS: Heparin 5,000 UNITS/ML VIAL SC SCH (20:39)
[2024-02-17] MEDS: Docusate 100 MG CAP PO SCH (20:39)
[2024-02-17] MEDS ORDERED: Benztropine 1 MG TAB PO SCH (21:00)
[2024-02-18] MEDS: Sertraline 25 MG TAB PO SCH (08:09)
[2024-02-18] MEDS: Aspirin 325 mg Enteric Coated Tablet PO SCH (08:10)
[2024-02-18] MEDS: Acetaminophen 325 MG TAB PO PRN (20:53)
[2024-02-20 08:20] LABS: Anion Gap 13 mmol/L (10-20); BUN (Urea Nitrogen) 10 mg/dL (8.4-25.7); Calc. Creatinine Clearance 126 mL/min (70-130); Calcium 9.4 mg/dL (7.8-10.44); Carbon Dioxide 24 mmol/L (22-29); Chloride 104 mmol/L (98-107); Estimated GFR 106; Glucose 78 mg/dL (70-105); Potassium 3.9 mmol/L (3.5-5.1); Sodium 137 mmol/L (136-145)
[2024-02-20 08:45] LABS: #Basophils 0.06 10x3/uL (0.0-0.2); %Basophils 0.5 % (0.0-1.0); %Eosinophils 6.1 % (0.0-10.0); %Lymphocytes 18.8 % (21.0-51.0); %Monocytes 10.7 % (0.0-10.0); %Neutrophils 63.2 % (42.0-75.0); Hematocrit 32.1 % (42.0-52.0); Hemoglobin 10.5 g/dL (14.0-18.0); Mean Corpuscular HGB CONC 32.7 g/dL (32.0-36.0); Mean Corpuscular Hemoglobin 28.2 pg (27.0-31.0); Mean Corpuscular Volume 86.1 fL (78.0-98.0); Mean Platelet Volume 10.5 fL (7.4-10.4); Platelet Count 316 10x3/uL (130-400); Red Blood Cell (RBC) Count 3.73 mill/uL (4.70-6.10)
[2024-02-20] MEDS ORDERED: GenTeal Tears Severe Dry Eye GEL 10 GM R EYE PRN ×2 (08:59→09:02)
[2024-02-20] MEDS ORDERED: Lisinopril 20 MG TAB PO SCH (09:00)
[2024-02-20] MEDS ORDERED: Polyvinyl Alcohol 1.4%/Povidone 0.6% Opth Drops EA EYE SCH (09:00)
[2024-02-20] MEDS: Lisinopril 10 MG TAB PO SCH (11:00)
[2024-02-20] MEDS: cefTRIAXone\\ROCEPHIN 2 GM in Sodium Chloride 0.9% 100 ML IVPB SCH (14:57)
[2024-02-20] MEDS: Lurasidone 20 MG TABLET PO SCH (22:11)
[2024-02-20] MEDS: Doxycycline 100 MG CAP PO SCH (22:11)
[2024-02-21 05:22] LABS: #Basophils 0.06 10x3/uL (0.0-0.2); %Basophils 0.5 % (0.0-1.0); %Eosinophils 4.7 % (0.0-10.0); %Monocytes 9.7 % (0.0-10.0); %Neutrophils 67.6 % (42.0-75.0); Hematocrit 31.7 % (42.0-52.0); Hemoglobin 10.5 g/dL (14.0-18.0); Mean Corpuscular HGB CONC 33.1 g/dL (32.0-36.0); Mean Corpuscular Hemoglobin 28.5 pg (27.0-31.0); Mean Corpuscular Volume 85.9 fL (78.0-98.0); Platelet Count 315 10x3/uL (130-400); RBC Distribution Width 14.2 % (11.5-14.5); Red Blood Cell (RBC) Count 3.69 mill/uL (4.70-6.10)
[2024-02-21 06:13] LABS: Anion Gap 16 mmol/L (10-20); BUN (Urea Nitrogen) 10 mg/dL (8.4-25.7); Calc. Creatinine Clearance 129 mL/min (70-130); Calcium 9.5 mg/dL (7.8-10.44); Carbon Dioxide 22 mmol/L (22-29); Chloride 103 mmol/L (98-107); Estimated GFR 107; Glucose 86 mg/dL (70-105); Potassium 3.8 mmol/L (3.5-5.1); Sodium 137 mmol/L (136-145)
[2024-02-21 07:51] LABS: Legionella Urinary Ag Negative (Negative)
[2024-02-21 07:52] LABS: Strep pneumo Urine Ag NEGATIVE (NEGATIVE)
[2024-02-21] MEDS: Polyvinyl Alcohol 1.4%/Povidone 0.6% Opth Drops EA EYE SCH (13:53)
[2024-02-21] MEDS: Ipratropium/Albuterol 3 ML NEB NEB PRN (20:27)
[2024-02-22 10:14] LABS: #Basophils 0.07 10x3/uL (0.0-0.2); %Basophils 0.4 % (0.0-1.0); %Eosinophils 1.8 % (0.0-10.0); %Lymphocytes 13.7 % (21.0-51.0); %Monocytes 8.8 % (0.0-10.0); %Neutrophils 74.5 % (42.0-75.0); Hematocrit 33.4 % (42.0-52.0); Mean Corpuscular HGB CONC 32.9 g/dL (32.0-36.0); Mean Corpuscular Hemoglobin 27.8 pg (27.0-31.0); Mean Corpuscular Volume 84.6 fL (78.0-98.0); Mean Platelet Volume 9.6 fL (7.4-10.4); Platelet Count 350 10x3/uL (130-400); RBC Distribution Width 14.3 % (11.5-14.5); Red Blood Cell (RBC) Count 3.95 mill/uL (4.70-6.10)
[2024-02-22 11:18] LABS: Chloride 104 mmol/L (98-107); Potassium 3.8 mmol/L (3.5-5.1); Sodium 141 mmol/L (136-145)
[2024-02-22 11:19] LABS: Calcium 9.8 mg/dL (7.8-10.44); Glucose 122 mg/dL (70-105)
[2024-02-22 11:21] LABS: Anion Gap 17 mmol/L (10-20); Carbon Dioxide 24 mmol/L (22-29)
[2024-02-22 11:23] LABS: BUN (Urea Nitrogen) 17 mg/dL (8.4-25.7); Calc. Creatinine Clearance 117 mL/min (70-130); Estimated GFR 104
[2024-02-22 15:13] VITALS: BMI 27.0
[2024-02-22] MEDS: Cefepime 2 GM in Sodium Chloride 0.9% 100 ML IVPB SCH (17:42)
[2024-02-23 05:23] LABS: #Basophils 0.08 10x3/uL (0.0-0.2); %Basophils 0.5 % (0.0-1.0); %Eosinophils 2.2 % (0.0-10.0); %Lymphocytes 13.3 % (21.0-51.0); %Monocytes 10.7 % (0.0-10.0); %Neutrophils 72.2 % (42.0-75.0); Hematocrit 32.1 % (42.0-52.0); Hemoglobin 10.2 g/dL (14.0-18.0); Mean Corpuscular HGB CONC 31.8 g/dL (32.0-36.0); Mean Corpuscular Hemoglobin 26.9 pg (27.0-31.0); Mean Corpuscular Volume 84.7 fL (78.0-98.0); Mean Platelet Volume 9.6 fL (7.4-10.4); Platelet Count 332 10x3/uL (130-400); RBC Distribution Width 14.6 % (11.5-14.5); Red Blood Cell (RBC) Count 3.79 mill/uL (4.70-6.10)
[2024-02-23 05:39] LABS: Anion Gap 13 mmol/L (10-20); BUN (Urea Nitrogen) 14 mg/dL (8.4-25.7); Calc. Creatinine Clearance 117 mL/min (70-130); Calcium 9.5 mg/dL (7.8-10.44); Carbon Dioxide 25 mmol/L (22-29); Chloride 106 mmol/L (98-107); Estimated GFR 104; Glucose 96 mg/dL (70-105); Potassium 4.3 mmol/L (3.5-5.1); Sodium 140 mmol/L (136-145)
[2024-02-23] MEDS ORDERED: Iopamidol 370 76% 100 ML VIAL ONE (12:05)
[2024-02-23] MEDS: Famotidine 20 MG TAB PO SCH (22:17)
[2024-02-24] MEDS ORDERED: Benzonatate 100 MG CAP PO PRN (02:54)
[2024-02-24] MEDS: Scopolamine 1 mg/72 hour Patch TD SCH (03:45)
[2024-02-24 04:03] LABS: #Basophils 0.08 10x3/uL (0.0-0.2); %Basophils 0.5 % (0.0-1.0); %Lymphocytes 15.5 % (21.0-51.0); %Monocytes 9.5 % (0.0-10.0); %Neutrophils 70.5 % (42.0-75.0); Hematocrit 30.8 % (42.0-52.0); Hemoglobin 9.9 g/dL (14.0-18.0); Mean Corpuscular HGB CONC 32.1 g/dL (32.0-36.0); Mean Corpuscular Hemoglobin 27.3 pg (27.0-31.0); Mean Corpuscular Volume 84.8 fL (78.0-98.0); Mean Platelet Volume 9.6 fL (7.4-10.4); Platelet Count 335 10x3/uL (130-400); RBC Distribution Width 14.5 % (11.5-14.5); Red Blood Cell (RBC) Count 3.63 mill/uL (4.70-6.10)
[2024-02-24 04:30] LABS: Magnesium 1.9 mg/dL (1.6-2.6)
[2024-02-24 04:30] LABS: Anion Gap 14 mmol/L (10-20); BUN (Urea Nitrogen) 17 mg/dL (8.4-25.7); Calc. Creatinine Clearance 139 mL/min (70-130); Calcium 9.8 mg/dL (7.8-10.44); Carbon Dioxide 24 mmol/L (22-29); Chloride 105 mmol/L (98-107); Estimated GFR 110; Glucose 98 mg/dL (70-105); Potassium 4.1 mmol/L (3.5-5.1); Sodium 139 mmol/L (136-145)
[2024-02-25 04:19] LABS: #Basophils 0.07 10x3/uL (0.0-0.2); %Basophils 0.6 % (0.0-1.0); %Eosinophils 4.7 % (0.0-10.0); %Lymphocytes 21.2 % (21.0-51.0); %Monocytes 8.9 % (0.0-10.0); %Neutrophils 63.9 % (42.0-75.0); Hematocrit 28.9 % (42.0-52.0); Hemoglobin 9.4 g/dL (14.0-18.0); Mean Corpuscular HGB CONC 32.5 g/dL (32.0-36.0); Mean Corpuscular Hemoglobin 28.3 pg (27.0-31.0); Mean Platelet Volume 9.6 fL (7.4-10.4); Platelet Count 300 10x3/uL (130-400); RBC Distribution Width 14.6 % (11.5-14.5); Red Blood Cell (RBC) Count 3.32 mill/uL (4.70-6.10)
[2024-02-25 04:32] LABS: Anion Gap 13 mmol/L (10-20); BUN (Urea Nitrogen) 13 mg/dL (8.4-25.7); Calc. Creatinine Clearance 128 mL/min (70-130); Carbon Dioxide 25 mmol/L (22-29); Chloride 105 mmol/L (98-107); Potassium 4.1 mmol/L (3.5-5.1); Sodium 139 mmol/L (136-145)
[2024-02-25 04:33] LABS: Calcium 9.7 mg/dL (7.8-10.44); Estimated GFR 107; Glucose 87 mg/dL (70-105)
[2024-02-26 04:38] LABS: #Basophils 0.08 10x3/uL (0.0-0.2); %Basophils 0.7 % (0.0-1.0); %Lymphocytes 22.8 % (21.0-51.0); %Monocytes 8.5 % (0.0-10.0); %Neutrophils 62.4 % (42.0-75.0); Hematocrit 27.1 % (42.0-52.0); Hemoglobin 8.7 g/dL (14.0-18.0); Mean Corpuscular HGB CONC 32.1 g/dL (32.0-36.0); Mean Corpuscular Hemoglobin 27.8 pg (27.0-31.0); Mean Corpuscular Volume 86.6 fL (78.0-98.0); Mean Platelet Volume 9.8 fL (7.4-10.4); Platelet Count 306 10x3/uL (130-400); RBC Distribution Width 14.2 % (11.5-14.5); Red Blood Cell (RBC) Count 3.13 mill/uL (4.70-6.10)
[2024-02-26 04:54] LABS: Anion Gap 15 mmol/L (10-20); BUN (Urea Nitrogen) 13 mg/dL (8.4-25.7); Calc. Creatinine Clearance 144 mL/min (70-130); Calcium 9.7 mg/dL (7.8-10.44); Carbon Dioxide 25 mmol/L (22-29); Chloride 102 mmol/L (98-107); Estimated GFR 111; Glucose 85 mg/dL (70-105); Sodium 138 mmol/L (136-145)
[2024-02-26 09:09] VITALS: BP 114/81; TEMP 97.6
[2024-02-26] MEDS: GUAIFENESIN SF SOLN 200 MG/10 ML UDCUP PO PRN (09:23)
[2024-02-26] MEDS: LevoFLOXacin 750 MG TAB PO SCH (15:46)
[2024-02-27] MEDS ORDERED: LevoFLOXacin 750 MG TAB PO SCH (15:00)
== END 2024-02-26 14:35 | disposition home or self-care (01) | DRG 871 ==
LOC: ERS 15:28 → MSONC 20:33 → OBSVTOIN 02-16 14:57
PROVIDERS: ADMIT Student in an Organized Health Care Education/Training Program; ATTEND Hospitalist
DX: A41.9 Sepsis, unspecified organism (principal); G93.41 Metabolic encephalopathy; J18.9 Pneumonia, unspecified organism; N39.0 Urinary tract infection, site not specified; I69.859 Hemiplegia and hemiparesis following other cerebrovascular disease affecting unspecified side; I69.820 Aphasia following other cerebrovascular disease; Z79.82 Long term (current) use of aspirin; Z79.899 Other long term (current) drug therapy; I10 Essential (primary) hypertension; F41.9 Anxiety disorder, unspecified; F32.A Depression, unspecified; F17.210 Nicotine dependence, cigarettes, uncomplicated; E78.5 Hyperlipidemia, unspecified
CPT/HCPCS: 36415; 70450; 71046; 71260; 76770; 80048; 80053; 81001; 83605; 83690; 83735; 83880; 84484; 85025; 87040; 87077; 87081; 87086; 87186; 87449; 87899; 93005; 94640; 96365; 96374; 96375; G0378; J0692; J0696; J1642; J1644; J3370; J3475; J3480; J3490; J7620; Q9967